=== PATIENT | female | born 1945 | race Caucasian/White ===

== ENCOUNTER → 2017-12-13 12:28 | Outpatient (CLI) | payer MEDICARE, SELFPAY ==
--- NOTE | 2017-12-13 12:36 | DI.RAD.S_ITS ---
PROCEDURE: XR LUMBAR SPINE 2-3V INDICATIONS: low back pain TECHNIQUE: 3 views of the lumbar spine were acquired. COMPARISON: None. FINDINGS: Bones: There are 5 [id number] lumbar vertebral bodies. There is 29? left convex rotational scoliosis centered at L2. No wedge compression deformities. Degenerative change including osteophytosis and facet sclerosis is present throughout the mid and lower lumbar spine. Soft tissues: Overlying bowel gas pattern is normal. No suspicious soft tissue calcifications. IMPRESSION: 1. Left convex scoliosis and degenerative change. Dictated by: Chante Keller M.D. on 12/13/2017 at 14:44 Approved by: Chante Keller M.D. on 12/13/2017 at 14:50
[2017-12-13 13:35] LABS: Add Manual Diff / Slide Review NO; Basophils Percent Auto 0.3 % (0-2); Eosinophils Percent Auto 0.9 % (2-4); Hematocrit 37.6 % (36-46); Hemoglobin 12.8 g/dL (12.0-16.0); Lymphocytes Percent Auto 31.1 % (25-40); Mean Corpuscular Hemoglobin 29.2 PG (26-34); Mean Corpuscular Volume 85.9 fL (80-100); Monocytes Percent Auto 8.4 % (3-14); Neutrophils Absolute Auto 3700 /uL (3000-5900); Neutrophils Percent Auto 59.3 % (50-75); Platelet Count 242 X10^3/uL (150-400); Red Blood Cell Count 4.37 X10^6/uL (4.0-5.2); Red Cell Distribution Width 13.7 % (11.6-14.8); White Blood Cell Count 6.3 X10^3/uL (4.5-11.0)
[2017-12-13 13:46] LABS: Alanine Aminotransferase 22 IU/L (9-52); Albumin 4.4 g/dL (3.5-5.0); Albumin Globulin Ratio 1.4 (1.0-2.8); Alkaline Phosphatase 59 U/L (38-126); Aspartate Aminotransferase 33 IU/L (14-36); Bilirubin Total 0.5 mg/dL (0.2-1.3); Blood Urea Nitrogen 16 mg/dL (7-17); Calcium 9.8 mg/dL (8.4-10.2); Carbon Dioxide 33 mmol/L (22-32); Chloride 102 mmol/L (98-107); Creatine Kinase 58 U/L (30-135); Estimated Glomerular Filt Rate > 60.0 mL/min (>60); Globulin 3.2 g/dL (1.7-4.1); Glucose 85 mg/dL (80-110); HEMOLYSIS < 15 (0-50); Potassium 4.2 mmol/L (3.4-5.1); Sodium 142 mmol/L (137-145); Total Protein 7.6 g/dL (6.3-8.2)
[2017-12-13 13:47] LABS: C-Reactive Protein Quant < 0.5 mg/dL (<1.0); Rheumatoid Factor < 8.6 IU/mL (<12.0)
[2017-12-13 14:06] LABS: Erythrocyte Sedimentation Rate 39 MM/HR (0-20)
[2017-12-13 15:05] LABS: Thyroid Stimulating Hormone 1.85 uIU/mL (0.47-4.68)
[2017-12-13 15:08] LABS: Vitamin D 25 Hydroxy (D3) 47.6 ng/mL (30.0-100.0)
[2017-12-19 14:52] LABS: ANA Screen NEGATIVE; Rheumatoid Factor <14
[2017-12-19 14:53] LABS: DNA Antibody Crithidia IFA NEGATIVE; Sjogren Antiboday SS-A <1.0 NEG; Sm Antibody <1.0 NEG; Sm/RNP Antibody <1.0 NEG
[2017-12-19 14:54] LABS: Sjogren Antiboday SS-B <1.0 NEG
== END ==
PROVIDERS: Family Provider Internal Medicine; PCP Internal Medicine; Visit Provider Internal Medicine
DX: M79.604 Pain in right leg (principal); M79.605 Pain in left leg; R29.898 Other symptoms and signs involving the musculoskeletal system; M54.5 Low back pain
CPT/HCPCS: 36415; 72100; 80053; 82306; 82550; 84443; 85025; 85651; 86038; 86140; 86430

== ENCOUNTER → 2018-02-14 12:52 | Outpatient (CLI) | payer MEDICARE, SELFPAY ==
--- NOTE | 2018-02-14 12:54 | DI.RAD.S_ITS ---
PROCEDURE: XR HIP W PEL IF DONE LT 2V INDICATIONS: left hip/groin pain TECHNIQUE: AP pelvis with lateral view(s) of the left hip(s). COMPARISON: [facility], , HIP 2V RIGHT, 10/18/2008, 10:20. FINDINGS: Bones: No fractures or dislocations. Pelvic ring appears intact. No suspicious bony lesions. There is severe left hip joint degeneration with joint space narrowing, subchondral sclerosis and osteophyte formation. Soft tissues: The visualized bowel gas pattern is normal. No suspicious soft tissue calcifications. IMPRESSION: Severe degenerative joint disease in left hip. Dictated by: Ramsey Salcedo M.D. on 02/14/2018 at 17:03 Approved by: Ramsey Salcedo M.D. on 02/14/2018 at 17:04
== END ==
PROVIDERS: PCP Internal Medicine; Visit Provider Internal Medicine
DX: M16.12 Unilateral primary osteoarthritis, left hip (principal); R10.32 Left lower quadrant pain; M25.552 Pain in left hip
CPT/HCPCS: 73502

== ENCOUNTER → 2018-03-02 10:11 | Outpatient (CLI) | payer MEDICARE, SELFPAY ==
--- NOTE | 2018-03-02 10:13 | DI.MRI.S_ITS ---
PROCEDURE: MR LUMBAR SPINE WO CON INDICATIONS: low back pain with radiculopathy TECHNIQUE: Noncontrast sagittal T1 spin echo and T2 fast echo, sagittal STIR, axial T1 and T2 fast spin echo through the lumbar spine. In cases with scoliosis, additional coronal T2 fast spin echo may be performed. COMPARISON: [facility], CR, XR LUMBAR SPINE 2-3V, 12/13/2017, 12:36. FINDINGS: Image quality: Excellent. Alignment and Curvature: There is convex left scoliosis with Funez angle of 24?. There is trace L3-L4 and L4-L5 degenerative anterolisthesis. There is trace L1-L2 retrolisthesis. Bone Marrow: Mild reactive endplate changes noted adjacent to the L1-L2, L2-L3, L3-L4, L4-L5 and L5-S1 discs. No acute vertebral body compression fractures. Spinal Cord: Conus medullaris terminates at the L1 level. Visualized cord demonstrates normal signal and size. Paraspinous Soft Tissues: No paravertebral masses. Small right renal cyst. L1-L2: Loss of disc signal and mild loss of disc height. Mild, diffuse disc bulge. mild narrowing of the central canal. No neural foraminal narrowing. No neural impingement. L2-L3: Loss of disc signal and slight loss of disc height. Mild, diffuse disc bulge. Mild facet and mild ligamentum flavum hypertrophy. Mild to moderate narrowing of the central canal. No neural foraminal narrowing. No neural impingement. L3-L4: Loss of disc signal. Moderate, diffuse disc bulge. Mild facet and moderate ligamentum flavum hypertrophy. Moderate narrowing of the central canal. Mild bilateral neural foraminal narrowing. No neural impingement. L4-L5: Loss of disc signal and slight loss of disc height. Moderate, diffuse disc bulge and mild facet and moderate ligamentum flavum hypertrophy. Moderate narrowing of the central canal. Mild right and severe left neural foraminal narrowing with flattening deformity exiting left L4 nerve root. L5-S1: Loss of disc signal. Mild diffuse disc bulge and mild bilateral facet hypertrophy. No central stenosis. Mild right neural foraminal narrowing. No neural impingement. Focal high intensity zone within the posterior annulus compatible with a fissure. IMPRESSION: 1. Convex left scoliosis. 2. Multilevel degenerative disc disease. 3. Multilevel facet arthropathy. 4. Moderate L3-L4 and L4-L5 central canal narrowing. Mild to moderate L2-L3 central canal narrowing. Mild L1-L2 the central canal narrowing. 5. Mild right and severe left L4-L5 neural foraminal narrowing. Mild bilateral L3-L4 neural foraminal narrowing. Mild right L5-S1 neural foraminal narrowing. 6. Flattened deformity of the exiting left L4 nerve root secondary to neural foraminal narrowing. Please correlate with clinical data. Dictated by: Gina Denise MD, PhD on 03/02/2018 at 13:08 Approved by: Gina Denise MD, PhD on 03/02/2018 at 13:23
== END ==
PROVIDERS: Family Provider Orthopaedic Surgery; PCP Internal Medicine; Visit Provider Internal Medicine
DX: M54.5 Low back pain (principal); M54.10 Radiculopathy, site unspecified
CPT/HCPCS: 72148

== ENCOUNTER → 2018-03-04 08:56 | Outpatient (CLI) | payer MEDICARE, SELFPAY ==
[2018-03-04 09:35] LABS: Add Manual Diff / Slide Review NO; Basophils Percent Auto 0.2 % (0-2); Eosinophils Percent Auto 2.4 % (2-4); Hematocrit 38.4 % (36-46); Hemoglobin 12.7 g/dL (12.0-16.0); Lymphocytes Percent Auto 21.9 % (25-40); Mean Corpuscular HGB Conc 33.2 % (30-36); Mean Corpuscular Hemoglobin 28.8 PG (26-34); Mean Corpuscular Volume 86.8 fL (80-100); Monocytes Percent Auto 7.3 % (3-14); Neutrophils Absolute Auto 6000 /uL (3000-5900); Neutrophils Percent Auto 68.2 % (50-75); Platelet Count 243 X10^3/uL (150-400); Red Blood Cell Count 4.42 X10^6/uL (4.0-5.2); White Blood Cell Count 8.9 X10^3/uL (4.5-11.0)
[2018-03-04 09:57] LABS: Alanine Aminotransferase 28 IU/L (9-52); Albumin Globulin Ratio 1.3 (1.0-2.8); Alkaline Phosphatase 64 U/L (38-126); Aspartate Aminotransferase 36 IU/L (14-36); Bilirubin Total 0.5 mg/dL (0.2-1.3); Blood Urea Nitrogen 15 mg/dL (7-17); Calcium 9.3 mg/dL (8.4-10.2); Carbon Dioxide 34 mmol/L (22-32); Chloride 104 mmol/L (98-107); Cholesterol 211 mg/dL (140-199); Estimated Glomerular Filt Rate > 60.0 mL/min (>60); Globulin 3.1 g/dL (1.7-4.1); Glucose 87 mg/dL (80-110); HDL Cholesterol 57 mg/dL (40-60); HEMOLYSIS < 15 (0-50); LDL Cholesterol Calculated 126 mg/dL (<100); Potassium 5.3 mmol/L (3.4-5.1); Sodium 147 mmol/L (137-145); Total Protein 7.1 g/dL (6.3-8.2); Triglycerides 138 mg/dL (35-150)
[2018-03-04 10:26] LABS: Thyroid Stimulating Hormone 1.19 uIU/mL (0.47-4.68)
== END ==
PROVIDERS: Family Provider Orthopaedic Surgery; PCP Internal Medicine; Visit Provider Internal Medicine
DX: E78.5 Hyperlipidemia, unspecified (principal)
CPT/HCPCS: 36415; 80053; 80061; 84443; 85025

== ENCOUNTER → 2018-05-13 09:30 | Outpatient (CLI) | payer MEDICARE, SELFPAY ==
[2018-05-13 10:02] LABS: Bacteria Urine None Seen; RBC Urine None Seen (0-5/HPF); WBC Urine None Seen (0-5/HPF)
[2018-05-13 10:50] LABS: Appearance Urine UA CLEAR; Bilirubin Urine UA NEGATIVE (NEGATIVE); Color Urine UA YELLOW; Glucose Urine UA NEGATIVE (Negative); Ketones Urine UA NEGATIVE (NEGATIVE); Leukocyte Esterase Urine UA NEGATIVE (NEGATIVE); Nitrite Urine UA NEGATIVE (Negative); Occult Blood Urine UA NEGATIVE (Negative); Protein Urine UA NEGATIVE (Negative); Specific Gravity Urine UA 1.015 (1.000-1.035); Urobilinogen Urine UA 0.2 E.U./dL (0.2); pH Urine UA 7.5 (4.5-8.0)
[2018-05-13 10:54] LABS: Add Manual Diff / Slide Review NO; Basophils Percent Auto 0.2 % (0-2); Eosinophils Percent Auto 2.1 % (2-4); Hematocrit 36.8 % (36-46); Hemoglobin 12.3 g/dL (12.0-16.0); Lymphocytes Percent Auto 29.4 % (25-40); Mean Corpuscular HGB Conc 33.5 % (30-36); Mean Corpuscular Hemoglobin 28.8 PG (26-34); Monocytes Percent Auto 9.2 % (3-14); Neutrophils Absolute Auto 2900 /uL (1500-7000); Neutrophils Percent Auto 59.1 % (50-75); Platelet Count 259 X10^3/uL (150-400); Red Blood Cell Count 4.28 X10^6/uL (4.0-5.2); Red Cell Distribution Width 13.6 % (11.6-14.8); White Blood Cell Count 4.9 X10^3/uL (4.5-11.0)
[2018-05-13 10:57] LABS: Culture Indicated Urine Cult Not Indicated; Mucus Urine 2+ (Negative)
[2018-05-13 11:24] LABS: Blood Urea Nitrogen 17 mg/dL (7-17); Calcium 9.1 mg/dL (8.4-10.2); Carbon Dioxide 32 mmol/L (22-32); Chloride 103 mmol/L (98-107); Estimated Glomerular Filt Rate > 60.0 mL/min (>60); Glucose 78 mg/dL (80-110); HEMOLYSIS < 15 (0-50); Potassium 4.6 mmol/L (3.4-5.1); Sodium 142 mmol/L (137-145)
[2018-05-13 11:29] LABS: Hemoglobin A1C% w Est Avg Glu 5.5 % (4.0-6.0)
== END ==
PROVIDERS: Family Provider Orthopaedic Surgery; PCP Internal Medicine; Visit Provider Orthopaedic Surgery
DX: N39.9 Disorder of urinary system, unspecified (principal); Z13.1 Encounter for screening for diabetes mellitus; R73.01 Impaired fasting glucose
CPT/HCPCS: 36415; 80048; 81001; 83036; 85025

== ENCOUNTER 2018-06-27 10:04 | Inpatient (IN) | payer MEDICARE, SELFPAY ==
[2018-06-12 09:59] VITALS: BMI 20.5
[2018-06-27] VITALS (13 sets, daily range): BP systolic 90–136; BP diastolic 51–69; PULSE 62–85; RESP 14–18; TEMP 36.1–36.8; O2SAT 95–100; BMI 20.5; BMI 23.0
--- NOTE | 2018-06-27 | DI.RAD.S_ITS ---
PROCEDURE: XR HIP LT 1V INDICATIONS: LEFT HIP REPLACEMENT TECHNIQUE: 11 views of the hip were acquired. COMPARISON: [facility], [place], XR HIP W PEL IF DONE LT 2V, 02/14/2018, 12:35. [facility], [place], HIP 2V RIGHT, 10/18/2008, 10:20. FINDINGS: Bones: No fractures or dislocations. No suspicious bony lesions. The visualized pelvic ring appears intact. Soft tissues: No suspicious soft tissue calcifications or masses. IMPRESSION: A series of images shows the sequence of preparation for placement of final components of left total hip arthroplasty, and the final 2 images show the final arthroplasty components in normal position establishing normal alignment. Dictated by: Pineda Lacey M.D. on 06/27/2018 at 16:10 Approved by: Pineda Lacey M.D. on 06/27/2018 at 16:12
--- NOTE | 2018-06-27 06:00 | DI.RAD.S_ITS ---
PROCEDURE: XR HIP W PEL IF DONE LT 2V INDICATIONS: Postop left total hip TECHNIQUE: 2 views of the hip were acquired. COMPARISON: [facility], CR, XR HIP W PEL IF DONE LT 2V, 02/14/2018, 12:35. FINDINGS: Bones: No fractures or dislocations. No suspicious bony lesions. The visualized pelvic ring appears intact. Soft tissues: No suspicious soft tissue calcifications or masses. No unexpected radiopaque foreign bodies are evident. There is a soft tissue edema and air are seen within the soft tissues overlying the left hip region. IMPRESSION: Expected post surgical changes related to left hip arthroplasty. Dictated by: Dio Ngo M.D. on 06/27/2018 at 15:15 Approved by: Dio Ngo M.D. on 06/27/2018 at 15:16
[2018-06-27] MEDS: LACTATED RINGERS 1,000 ML 42 ML IV (10:45)
[2018-06-27] MEDS: MELOXICAM 7.5 MG TABLET 15 MG PO (11:04)
[2018-06-27] MEDS: PREGABALIN 75 MG CAPSULE PO (11:04)
[2018-06-27] MEDS: ACETAMINOPHEN 325 MG TABLET 975 MG PO ×2 (11:04→20:58)
[2018-06-27] MEDS: VANCOMYCIN 1,000 MG/200 ML FROZ.PIGGY 200 MG IV (11:05)
--- NOTE | 2018-06-27 12:09 | PM.PREOP ---
Pre-operative Note Interval Note History & Physical reviewed/Exam performed by Physician: Yes Changes to H&P: No
--- NOTE | 2018-06-27 12:11 | P.OP_ITS ---
Operative Date/Time/Diagnoses Date of procedure: 06/27/18 Time of procedure: 12:36 Pre-op diagnosis: left hip OA Post-op diagnosis: same Procedure & Clinicians Procedure: Left total hip arthroplasty Same procedure as scheduled: Yes Indications: The patient has had progressively worsening left hip pain with radiographic changes consistent with arthritis. Non-operative management has failed and the patient has requested total hip replacement. The risks, benefits and alternatives to surgery were discussed with the patient prior to proceeding. Risks discussed included, but were not limited to, failure to relieve pain, leg length discrepancy, dislocation, stiffness, infection, nerve damage, deep venous thrombosis, pulmonary embolism, stroke, coma, heart attack, permanent paralysis and , as well as the potential need for eventual revision of the prosthetic. Surgeon: Lorrei Anderson Tobacco Scrap Sifter: Clarence Mills Anesthesia Type: General and Spinal Operative Notes Findings: Severe left hip arthritis, soft bone, good stability Closure Type: primary Specimen(s): none sent Prosthetic devices, grafts, tissues, transplants, or devices: [employer] anthology standard offset size 6, R3 50, 32 x -3 Estimated Blood Loss (mL): 250 Blood products transfused: none Procedure in detail: The patient was brought to the operating room. Patient was carefully positioned in the supine position. Time-out was performed and antibiotics were given. Anesthesia was induced. She was positioned in the on the table in order to allow hyperextension of the hip. Bilateral lower extremities were prepped and draped in a standard sterile fashion. An anterior left hip incision was made 1 fingerbreadth lateral to the anterior superior iliac spine and extended distally towards the greater trochanter. Dissection was carried out through skin and subcutaneous tissues. The skin and subcutaneous tissues were carefully injected with Lidocaine with epi. Superficial hemostasis was achieved. The fascia over the tensor fascia donte was defined and incised with a knife. Two Allis clamps were used to grasp the fascia. Tensor fascia donte was retracted laterally. A gelpi retractor was placed. Dissection was carried out down along the neck. The circumflex vessels were carefully identified and cauterized with the Aqua Mantis. There was good visualization of the femoral neck. A Cobra was placed superior to the neck and the gluteus fibers were carefully stripped from that superior aspect of the capsule. A 2nd retractor was placed along the inferior aspect of the neck. The rectus insertion along the capsule was partially released. A 3rd retractor that was then gently placed over the rim of the acetabulum under the rectus. Capsule was carefully incised and released from the intertrochanteric line circumferentially superior to the mid sagittal line and inferiorly to the mid sagittal line until the lesser trochanter was palpable. A tag stitch was placed both in the superior and inferior limb of the capsular insertion. Along the acetabulum capsule was also released up to the mid sagittal 12:00 position. A portion of the labrum was resected. A saw was used to perform an osteotomy at the level of the intertrochanteric line and the junction of the superior femoral neck leaving approximately 1 finger breath of residual inferior neck above the lesser trochanter. A 2nd cut was made along the femoral neck at the base of the head and a napkin ring of neck was removed. Corkscrew was placed in the femoral head and the head was removed without difficulty. Retractors were then repositioned around the a cetabulum. Residual labrum was resected and additional osteophytes were removed. A reamer that was 4 mm below the templated size was placed by hand in the acetabulum and it was reamed to centralize the acetabulum. It was then reamed up to 2 under the templated size and fluoroscopy was brought in to confirm the position of the reaming and depth of reaming. I reamed 1 under the anticipated size and touched the rim with line to line reaming. A trial cup was placed and noted that it was appropriately sized and fluoroscopy confirmed position and depth. The component was open and inserted without difficulty fluoroscopic imaging was used to confirm that the cup had been adequately seated and was well positioned. Neutral poly trial liner was placed. The cup was tested and noted to be stable. Attention was then directed to the femur. The femur was gently hyperextended additional capsular release was performed as needed in order to allow adequate visualization of the proximal femur with elevation of the femur. Patient was placed in a hyperextended slightly abducted position with maximum external rotation. Box osteotome was used to check for any residual neck as well as sclerotic bone along the trochanter. [place] pepper was placed in the femur. Additional broaching was performed. Canal finder was used to determine the alignment of the canal and position. Size 1 broach was placed. The canal was then appropriately broached up to the templated size as long as there was adequate stability of the broach and serial advancement of the broach without excessive impingement. Specific attention was directed at avoiding varus attempting to direct the distal aspect of the broach more anteriorly and avoiding excessive anteversion. Trial reduction showed acceptable range of motion, good stability, no posterior impingement, restorationist of leg length and appropriate lateral shuck. I also hyperflexed the hip and checked that there was no impingement anteriorly and there was good stability with flexion, abduction and internal rotation. Final neutral poly was placed without difficulty. Marcaine and Exparel were injected.. The stem was placed without difficulty. Repeat trial reduction and x-ray showed acceptable overall position, length, and no evidence of the femoral fracture. Final head was placed. Wound was meticulously irrigated with normal saline. The hip was reduced and additional Exparel and Marcaine were injected. The capsule was closed with interrupted nonabsorbable sutures. The fascia of the tensor was closed with interrupted and running Vicryl. No drain was placed. Any tensor fascia donte muscle that appeared to be contused or injured which was a minimal amount was carefully resected. Capsule around the tensor was injected with Exparel and Marcaine. The skin was closed with barbed stitches for the subcutaneous tissue and skin. We also used surgical glue. The wound was dressed sterilely. Brief Betadine soak was also used and was meticulously irrigated wit h normal saline. Patient was transferred to recovery room in satisfactory condition. Complications: none Condition: stable Disposition: Acute Care Plan for aftercare: The patient will be maintained on a standard total hip replacement protocol with weight bearing as tolerated and anterior hip precautions. The patient will receive Aspirin and sequential compression devices for DVT prophylaxis. The patient will be discharged home when safe for the home environment.
[2018-06-27] MEDS: CEFAZOLIN 2 GM/100 ML FROZ.PIGGY IV ×2 (12:38→21:05)
--- NOTE | 2018-06-27 13:18 | SUR.OPER ---
Supine, head on pillow, torso on pink pad positioner. Iliac crest at flex of foot end of table. Gel roll under operative hip. Both arms secured on arm boards <90 degrees abduction.
[2018-06-27] MEDS: LIDOCAINE 1% W/EPI INJ 20 ML INJ (13:24)
[2018-06-27] MEDS: BUPIVACAINE 0.25% W/ EPI VIAL 50 ML INJ (14:07)
[2018-06-27] MEDS: BUPIVACAINE LIPOSOME 266 MG/20 ML VIAL INJ (14:07)
[2018-06-27] MEDS: POVIDONE-IODINE 15 ML, SODIUM CHLORIDE 0.9% 250 ML TOP (14:07)
[2018-06-27] MEDS: LACTATED RINGERS 1,000 ML 125 ML IV (16:40)
--- NOTE | 2018-06-27 19:22 | PC.NURSE ---
Addendum entered by Yudith Orellana R.N. 06/27/18 21:17: Pt had had relatively uneventful evening. Denies any discomfort, CMS ++ Dsg to left anterior hip CDI. IVF continue as per orders. Stable post op course. Call light w/in reach, bed alarm on for pt safety. Continue w/plan of care. Original Note: Pt arrived to floor at 1605. Alert/oriented. denies discomfort. Pt and family oriented to room and call system. Dsg to anterior left leg CDI.. IV of LR infusing into the RFA @ 125cc/hr via pump w/o incidence. Stable post op course. Call light w/in reach, family in room.
[2018-06-27] MEDS: DOCUSATE 100 MG CAPSULE PO (20:57)
[2018-06-27] MEDS: ASPIRIN EC 81 MG TABLET PO (20:58)
[2018-06-27] MEDS: AMITRIPTYLINE 25 MG TABLET PO (20:59)
[2018-06-28] MEDS: LACTATED RINGERS 1,000 ML 125 ML IV (00:04)
[2018-06-28 04:45] VITALS: BP 96/68; PULSE 70; RESP 18; TEMP 36.4; O2SAT 96
[2018-06-28] MEDS: CEFAZOLIN 2 GM/100 ML FROZ.PIGGY IV (05:31)
[2018-06-28 07:16] LABS: Hematocrit 30.7 % (36-46)
[2018-06-28 08:00] VITALS: BP 95/54; PULSE 66; RESP 16; TEMP 35.6
--- NOTE | 2018-06-28 08:18 | PM.DS.1 ---
History of Present Illness Date Patient Seen: 06/28/18 Time Patient Seen: 08:19 Chief complaint: left hip [id number] Narrative: Hospital day 2, postop day 1 following left anterior total hip arthroplasty by Dr. Anderson. Patient has been stable since postoperatively. She has not worked with physical therapy yet. Pain is been well controlled with ibuprofen and aspirin. She is scheduled to go to [id number]. Patient desiring to go home today. Discharge Providers Date of admission: 06/27/18 10:04 Primary care physician: VONNIE Florian Consults: 06/27/18 06:00 Consult to Anesthesiology Routine Comment: Consulting Provider: Anesthesiologist Reason for consultation: Regional block for post operative pain control 06/27/18 16:26 Consult to Discharge Planning Routine Comment: Consult to Physical Therapy Evaluate & Treat Comment: Physician Instructions: post op MARIYA protocol Consult to Respiratory Therapy Evaluate & Treat Comment: Physician Instructions: Evaluate and treat Discharge provider: Andrew aLke PA-C Discharge Date: 06/28/18 Summary Discharge Diagnosis: Status post left anterior total hip arthroplasty. Hospital Course: Patient brought to hospital on 06/27/2018 for above noted surgery. She remained stable postoperatively. She advanced well with physical therapy. Ready for discharge home on postop day 1. Status at Discharge Cognitive/behavioral status at discharge: Alert, oriented no acute distress. Functional status at discharge: uses cane/walker Overall status at discharge: patient is progressing back to baseline Time Spent with Patient Less than 30 minutes Exam Vital Signs (past 8 hours): - 06/28/18 04:45 Temperature 97.6 F Pulse Rate 70 Respiratory Rate 18 Blood Pressure 96/68 Pulse Oximetry 96 Oxygen Delivery Method Room Air Oxygen Flow Rate 0 Narrative Exam Narrative: Legs. Aquacel dressing to left hip area is dry without drainage or inflammation. No calf pain or swelling. Pulses symmetrical. Objective Labs Result Diagrams: 06/28/18 06:37 Labs: Laboratory Results - last 24 hr 06/28/18 06:37 Hgb 10.0 L Hct 30.7 L Discharge Plan Discharge Plan Patient Disposition: Home Discharge Med Rec/Prescriptions Prescriptions: New acetaminophen 325 mg Tablet 975 mg PO TID Qty: 60 RF: 0 aspirin 81 mg Tablet,Delayed Release (Dr/Ec) 81 mg PO BID Qty: 60 RF: 0 hydrocodone-acetaminophen [[place]] 5-325 mg tablet 1 tab PO Q6H Qty: 20 RF: 0 Continued calcitonin (salmon) 200 IU/PUFF spray,non-aerosol 1 puff NS QDAY Qty: 3.7 RF: 5 amitriptyline 25 mg tablet 25 mg PO BEDTIME Qty: 30 RF: 2 meloxicam 15 mg tablet 15 mg PO DAILY Qty: 30 RF: 1 ibandronate [[place]] 150 mg tablet 150 mg PO QMONTH Qty: 3 RF: 3 atorvastatin 10 mg tablet 10 mg PO QPM RF: 0 tramadol 50 mg tablet 50 mg PO BEDTIME RF: 0 Follow up/Referrals: Lorrie Anderson MD [Family Provider] - (follow up in 5-7 days) Provider Discharge Instructions Diet: Diet as Tolerated Activity: Anterior hip precautions Cold/Heat Therapy: as needed Other treatments: Patient has tramadol at home and will try using that for pain before filling the prescription for hydrocodone. Skin/Wound/Dressing Care Report to your healthcare provider any signs of infection, such as:: chills, fever, night sweats, increased pain, unusual drainage and unusual redness Dressing: leave in place until second post op appointment Visit Report/Discharge Packet Instructions: DI for Hip Replacement Discharge Data Primary Care Provider: Kristen Porter Attending Provider: Lorrie Anderson Admit Date/Time: 06/27/18 10:04 Quality VTE Deep Vein Thrombosis/Pulmonary Embolism Present on Admission: No
--- NOTE | 2018-06-28 08:22 | P.DS_ITS ---
History of Present Illness Date Patient Seen: 06/28/18 Time Patient Seen: 08:19 Chief complaint: left hip [id number] Narrative: Hospital day 2, postop day 1 following left anterior total hip arthr oplasty by Dr. Anderson. Patient has been stable since postoperatively. She has not worked with physical therapy yet. Pain is been well controlled with ibuprofen and aspirin. She is scheduled to go to [facility]. Patient desiring to go home today. Discharge Providers Date of admission: 06/27/18 10:04 Primary care physician: VONNIE Florian Consults: 06/27/18 06:00 Consult to Anesthesiology Routine Comment: Consulting Provider: Anesthesiologist Reason for consultation: Regional block for post operative pain control 06/27/18 16:26 Consult to Discharge Planning Routine Comment: Consult to Physical Therapy Evaluate & Treat Comment: Physician Instructions: post op MARIYA protocol Consult to Respiratory Therapy Evaluate & Treat Comment: Physician Instructions: Evaluate and treat Discharge provider: Andrew Lake PA-C Discharge Date: 06/28/18 Summary Discharge Diagnosis: Status post left anterior total hip arthroplasty. Hospital Course: Patient brought to hospital on 06/27/2018 for above noted surgery. She remained stable postoperatively. She advanced well with physical therapy. Ready for discharge home on postop day 1. Status at Discharge Cognitive/behavioral status at discharge: Alert, oriented no acute distress. Functional status at discharge: uses cane/walker Overall status at discharge: patient is progressing back to baseline Time Spent with Patient Less than 30 minutes Exam Vital Signs (past 8 hours): - 06/28/18 04:45 Temperature 97.6 F Pulse Rate 70 Respiratory Rate 18 Blood Pressure 96/68 Pulse Oximetry 96 Oxygen Delivery Method Room Air Oxygen Flow Rate 0 Narrative Exam Narrative: Legs. Aquacel dressing to left hip area is dry without drainage or inflammation. No calf pain or swelling. Pulses symmetrical. Objective Labs Result Diagrams: 06/28/18 06:37 Labs: Laboratory Results - last 24 hr 06/28/18 06:37 Hgb 10.0 L Hct 30.7 L Discharge Plan Discharge Plan Patient Disposition: Home Discharge Med Rec/Prescriptions Prescriptions: New acetaminophen 325 mg Tablet 975 mg PO TID Qty: 60 RF: 0 aspirin 81 mg Tablet,Delayed Release (Dr/Ec) 81 mg PO BID Qty: 60 RF: 0 hydrocodone-acetaminophen [[place]] 5-325 mg tablet 1 tab PO Q6H Qty: 20 RF: 0 Continued calcitonin (salmon) 200 IU/PUFF spray,non-aerosol 1 puff NS QDAY Qty: 3.7 RF: 5 amitriptyline 25 mg tablet 25 mg PO BEDTIME Qty: 30 RF: 2 meloxicam 15 mg tablet 15 mg PO DAILY Qty: 30 RF: 1 ibandronate [Boniva] 150 mg tablet 150 mg PO QMONTH Qty: 3 RF: 3 atorvastatin 10 mg tablet 10 mg PO QPM RF: 0 tramadol 50 mg tablet 50 mg PO BEDTIME RF: 0 Follow up/Referrals: Lorrie Anderson MD [Family Provider] - (follow up in 5-7 days) Provider Discharge Instructions Diet: Diet as Tolerated Activity: Anterior hip precautions Cold/Heat Therapy: as needed Other treatments: Patient has tramadol at home and will try using that for pain before filling the prescription for hydrocodone. Skin/Wound/Dressing Care Report to your healthcare provider any signs of infection, such as:: chills, fever, night sweats, increased pain, unusual drainage and unusual redness Dressing: leave in place until second post op appointment Visit Report/Discharge Packet Instructions: DI for Hip Replacement Discharge Data Primary Care Provider: Kristen Porter Attending Provider: Lorrie Anderson Admit Date/Time: 06/27/18 10:04 Quality VTE Deep Vein Thrombosis/Pulmonary Embolism Present on Admission: No
[2018-06-28] MEDS: ASPIRIN EC 81 MG TABLET PO (08:25)
[2018-06-28] MEDS: ACETAMINOPHEN 325 MG TABLET 975 MG PO (08:26)
[2018-06-28] MEDS: MELOXICAM 7.5 MG TABLET 15 MG PO (08:26)
[2018-06-28 08:38] VITALS: O2SAT 96
--- NOTE | 2018-06-28 12:00 | PT.IIE ---
Current Diagnoses Unilateral primary osteoarthritis, left hip (06/27/18) Surgery Performed Operation Date: 06/27/18 12:00 Actual Procedures p Total Hip Arthroplasty/Anterior Approach(Left) - Lorrie Anderson MD Surgical History (Last Updated 06/12/18 @ 10:14 by Antoinette Boyd RN) Hx of oral surgery (Acute) Anesthesia (Resolved) Chalazion of left eye (Resolved ~2015) Status post right foot surgery (Resolved ~2005) Medical History (Last Updated 06/12/18 @ 10:13 by Antoinette Boyd RN) Aortic valve regurgitation (Acute) Back pain (Acute) Easy bruisability (Acute) Heart murmur (Acute) Mononucleosis (Acute) Scoliosis (Acute) Osteopenia (Chronic) Osteoporosis (Chronic) Chicken pox (Resolved) Hepatitis A (Resolved ~1957) Measles (Resolved) Mumps (Resolved) Physical Therapy Inpatient Evaluation/Re-Eval M1 PT/OT-IP Prior Functional Status Start: 06/28/18 11:43 Freq: NEEDED Status: Active Protocol: Document 06/28/18 10:30 (Rec: 06/28/18 12:00 [email or web address]) Medical Review Prior Functional Status Medical History Reviewed Yes Diet/Fluid Consistency Regular Communication No communication deficits noted Mobility and Gait Pt was an independent ambulator at home and community without using AD. Pt states she is slow in walking and used step to pattern for stair climbing. Activities of Daily Living and IADL's Independent for all ADLs and IADLs Social History Household Members spouse family Living Arrangements House Number of Floors (Floors) Two Floors Number of Stairs To Enter/Railing? 2 DAMIAN, 18 steps inside to 2nd floor Home Environment Tub/Shower Home Equipment Front Wheel Walker Straight Cane Raised Toilet Seat Without Armrests Employment Status Retired Additional Social History Comment Pt lives with his and a family member in a 2 story home in [place]. Pt's son John lives in . All 3 of them are very active and independent , and will be able to be pt's CG if needed. Pt lives on 2nd floor but her son states they could move her bed to mainfloor if needed. He is going to get a raised toilet seat with armrest soon. Pt has a tripod cane and FWW and she previously participated pre op PT at [facility]. M2 PT-IP Current Condition Start: 06/28/18 11:43 Freq: NEEDED Status: Active Protocol: Document 06/28/18 10:30 HH (Rec: 06/28/18 12:00 HH [email or web address]) Physical Therapy Current Condition Current Condition Evaluation Date 06/28/18 Treatment Diagnosis L MARIYA (anterior), difficulty in walking Onset Date 06/27/18 Precautions Anterior Hip Precautions No Hip Extension No Hip External Rotation Weight Bearing Status Weight Bearing Status Weight Bear as Tolerated M3 PT-IP Subjective Start: 06/28/18 11:43 Freq: NEEDED Status: Active Protocol: Document 06/28/18 10:30 HH (Rec: 06/28/18 12:00 HH [email or web address]) Subjective Physical Therapy Visit Type Type Initial Evaluation Visit Start Time 10:30 Visit Stop Time 11:10 Total Visit Minutes 40 Notes Pt agreeable to mobilize with PT, along with son and at bedside. Number of WHIPPED TOPPING MIXER Visits 0 Physical Therapy Visit Comments Patient Comments I dont have pain at all and i have been using BSC for toileting with nursing staff. Patient Goals To return home with her and participate PT for cont rehab Therapy Pain Assessment Pain Present Pain Present Denied Pain M4 PT-IP Mobility and Gait Start: 06/28/18 11:43 Freq: NEEDED Status: Active Protocol: Document 06/28/18 10:30 HH (Rec: 06/28/18 12:00 HH [email or web address]) PT-Bed Mobility Assessment Supine to Sit Supine to Sit Independent Head of Bed Elevated Bedrails Scooting Scooting to Edge of Bed Independent Scooting Up and Down in Bed Independent PT-Transfer Assessment Sit to and From Stand Sit to and from Stand Standby Assistance Use of Upper Extremities Equipment Transfer Assistive Device Gait Belt Front Wheeled Walker Transfers Transfer Destination Bed Chair Toilet Transfer Technique Stand Step Pivot Transfer Ability Level of Assist Standby Assistance 1 Person Assistance Use of Upper Extremities Comments Mobility Comments Pt performed supine to long sit independently from elevated HOB 30 degrees. She then pivoted herself to L EOB and scooted forward independently. Pt stood up with FWW SBA and amb to bathroom for toileting. Pt was able to doff her brief with 1 UE support SBA and safely transferred herself to regular toilet. Educated pt and family of car transfer to use R back door to enter since better stability with her R LE . Gait Assessment Gait Gait Assistance Required: Standby Assistance Distance (Feet) 200 Able to Maintain Weight Bearing Status Yes During Gait Assistive Devices Assistive Device Gait Belt Front Wheeled Walker Gait Deviations General Gait Pattern Antalgic Decreased Stride Length Decreased Feet Clearance Factors Limiting Gait Function Factors Limiting Gait Function Decreased Activity Tolerance Decreased Strength Comments Gait Comments Pt amb from EOB to toilet and to hallway for 2 loops with SBA FWW. Pt presented slight antalgic gait on L side with decreased stride length and foot clearance. However, she was very steady without signs of LOB and acute distress. Stair Climbing Assessment Evaluation Level of Assist On Stairs Standby Assistance Devices Stair Climbing Assistive Devices Right Railing Technique/Endurance Stair Climbing Direction Ascend and Descend Stair Climbing Technique Step to Step Number of Steps Climbed 3 Query Text: Stair Climbing Set # Repetitions (reps) 5 Comments Stair Climbing Comments climbed 3 steps x 5 sets with R rail step to pattern. Pt was able to recall up with the good and down with the bad. She presented steady pattern the whole time. PT-Balance Assessment Sitting Balance and Reactions Static Sitting Balance Ability Normal Dynamic Sitting Balance Ability Normal Standing Balance and Reactions Static Standing Balance Ability Good Dynamic Standing Balance Ability Good M5 PT-IP Objective Assessments Start: 06/28/18 11:43 Freq: NEEDED Status: Active Protocol: Document 06/28/18 10:30 HH (Rec: 06/28/18 12:00 [email or web address]) Orientation Orientation/Cognition Level of Alertness Alert Orientation Name Age Birthday Month Date Year Day of Week Place Situation Language Function Ability No Deficits Noted Safety Awareness Understands Safety Issues Memory Description No Deficits Noted Gross Range of Motion Upper Extremity ROM Assessment Within Functional Limits Lower Extremity ROM Assessment Left Impaired Strength Upper Extremity Strength Assessment Within Functional Limits Lower Extremity Strength Assessment Left Impaired Comments Strength Comments 3+/5 for L hip grossly Coordination Assessment Gross Coordination Gross Coordination WNL Sensation Assessment Sensation Gross Sensation WNL Muscle Tone Muscle Tone WNL Yes M6 PT-IP Treatment Start: 06/28/18 11:43 Freq: NEEDED Status: Active Protocol: Document 06/28/18 10:30 HH (Rec: 06/28/18 12:00 [email or web address]) Physical Therapy Treatment Exercises Exercises Ankle Pumps Gluteal Sets Quad Sets Heel Slides Education Education Provided Precautions Weight Bearing Status Post-Op Packet Safety M7 PT-IP Assessment and Plan Start: 06/28/18 11:43 Freq: NEEDED Status: Active Protocol: Document 06/28/18 10:30 HH (Rec: 06/28/18 12:00 [email or web address]) PT Summary Assessment and Plan Potential Rehabilitation Potential Excellent Status of Condition at Evaluation Stable Summary Impairments Pain Strength Bed Mobility Transfers Gait Activity Tolerance Assessment Summary Pt is a very pleasant and motivated 73 yo s/p post L MARIYA (anterior approach) day 1. Pt 's supportive and son are at bedside. Pt demonstrated very high functional mobility today who was able to perform bed mobility, amb and stair climbing with overall SBA/I with FWW. Pt was very steady, safe and cautious the whole time and able to recall precautions. Pt also has her appointments settled with [facility] starting on 07/06. Pt is safe to d/c home with family assistance at this point and will benefit from participating outpatient PT to cont rehab. Frequency of Treatment Frequency Of Treatment Discharge Recommendations To Nursing Amount of Assist Needed Standby Assistance 1 Person Assist Discharge Recommendations PT Discharge Recommendations Home with Assistance Outpatient PT
== END 2018-06-28 13:13 | disposition home or self-care (01) | DRG 470 ==
PROVIDERS: Admitting Provider Orthopaedic Surgery; Family Provider Orthopaedic Surgery; PCP Internal Medicine; Visit Provider Orthopaedic Surgery
PROC: 0SRB02Z Replacement of Left Hip Joint with Metal on Polyethylene Synthetic Substitute, Open Approach (ICD-10-PCS; CPT 27130; principal; 2018-06-27 12:00)
DX: M16.12 Unilateral primary osteoarthritis, left hip (principal); I35.1 Nonrheumatic aortic (valve) insufficiency; E78.5 Hyperlipidemia, unspecified; I34.0 Nonrheumatic mitral (valve) insufficiency
CPT/HCPCS: 36415; 73501; 73502; 76000; 85014; 85018; 94760; 94762; 97116; 97161; 97530; C1776; C9290; J0690; J1100; J2250; J2405; J2704; J3010; J3370

== ENCOUNTER → 2018-07-19 08:07 | Outpatient (CLI) | payer MEDICARE, SELFPAY ==
[2018-06-27 18:50] VITALS: BMI 23.0
--- NOTE | 2018-07-19 | DI.RAD.S_ITS ---
PROCEDURE: XR ABDOMEN 1V INDICATIONS: abdominal pain, r/o constipation TECHNIQUE: One view of the abdomen acquired. COMPARISON: [facility], CR, XR LUMBAR SPINE 2-3V, 12/13/2017, 12:36. [facility], CR, XR PELVIS WITH LATERAL HIP LEFT, 04/21/2018, 13:17. FINDINGS: Surgical changes and devices: Prior left total hip arthroplasty. Bowel: Bowel gas pattern is normal. Soft tissues: No suspicious abdominal calcifications. Visualized solid organ contours appear normal in size. Bones: No suspicious bony lesions. 22? levoscoliosis centered at L2. IMPRESSION: Nonspecific bowel gas pattern, definite colonic obstipation is not seen. Convex leftward scoliosis measures 22.0?, centered at L2. This appears chronic. Dictated by: Pineda Lacey M.D. on 07/19/2018 at 8:51 Approved by: Pineda Lacey M.D. on 07/19/2018 at 8:53
== END ==
PROVIDERS: PCP Internal Medicine; Visit Provider Internal Medicine
DX: R10.9 Unspecified abdominal pain (principal); M41.86 Other forms of scoliosis, lumbar region; Z96.642 Presence of left artificial hip joint
CPT/HCPCS: 74018

== ENCOUNTER → 2018-08-01 08:09 | Outpatient (CLI) | payer MEDICARE, SELFPAY ==
[2018-06-27 18:50] VITALS: BMI 23.0
--- NOTE | 2018-08-01 | DI.CT.S_ITS ---
PROCEDURE: CT ABDOMEN PELVIS W CON INDICATIONS: ABDOMINAL PAIN TECHNIQUE: After the administration of oral and intravenous contrast, 5 mm thick sections acquired from the diaphragms to the symphysis. 5 mm thick coronal and sagittal reformats were performed. For radiation dose reduction, the following was used: automated exposure control, adjustment of mA and/or kV according to patient size. COMPARISON: None. FINDINGS: Image quality: Excellent. ABDOMEN: Lung bases: Lung bases are clear. Heart size is normal. Fat containing left posterior diaphragmatic hernia. Solid organs: Hepatic steatosis. Gallbladder unremarkable. Biliary system is non-dilated. Pancreas enhances normally. Spleen is normal in size and enhancement. No adrenal nodules. Kidneys are normal in size and enhancement, without hydronephrosis. Peritoneum and bowel: Stomach, small bowel, and colon loops are normal in caliber and wall thickness. No free fluid or air. Colonic diverticulosis is seen without evidence of acute complication. There is questionable long segment sigmoid colonic wall thickening raising possibility of low grade acute on chronic diverticulitis. However, no specific focal inflamed diverticulum is seen recommend clinical correlation. The appendix is within normal limits Nodes and vessels: No retroperitoneal or mesenteric adenopathy. Aorta and inferior vena cava are normal in caliber. Miscellaneous: No ventral hernias. PELVIS: Genitourinary: Bladder wall thickness is normal. Miscellaneous: No inguinal hernias or adenopathy. Bones: No suspicious bony lesions. Scoliosis is present. Diffuse spondylitic changes. No vertebral body compression fractures. IMPRESSION: No acute process identified. Normal appendix. Hepatic steatosis. Fat containing left posterior diaphragmatic hernia. Colonic diverticulosis. Possible long segment mild sigmoid colonic wall thickening raising the possibility of low grade acute inflammation such as acute on chronic diverticulitis, however no specific focal inflamed diverticulum is seen. Dictated by: Asher Lee M.D. on 08/01/2018 at 10:38 Approved by: Asher Lee M.D. on 08/01/2018 at 10:46
== END ==
PROVIDERS: PCP Internal Medicine; Visit Provider Internal Medicine
DX: R10.9 Unspecified abdominal pain (principal); K76.0 Fatty (change of) liver, not elsewhere classified; K44.9 Diaphragmatic hernia without obstruction or gangrene; K57.90 Diverticulosis of intestine, part unspecified, without perforation or abscess without bleeding
CPT/HCPCS: 74177; Q9967

== ENCOUNTER → 2018-09-05 12:58 | Outpatient (CLI) | payer MEDICARE, SELFPAY ==
[2018-06-27 18:50] VITALS: BMI 23.0
== END ==
PROVIDERS: PCP Internal Medicine; Visit Provider Internal Medicine
DX: Z13.820 Encounter for screening for osteoporosis (principal); M81.0 Age-related osteoporosis without current pathological fracture; Z78.0 Asymptomatic menopausal state
CPT/HCPCS: 77080; 77081

== ENCOUNTER → 2019-03-17 09:21 | Outpatient (CLI) | payer MEDICARE, SELFPAY ==
[2018-06-27 18:50] VITALS: BMI 23.0
--- NOTE | 2019-03-17 | DI.MG.S_ITS ---
BILATERAL DIGITAL SCREENING MAMMOGRAM 3D/2D WITH CAD: 03/17/2019 CLINICAL: Routine screening. Family history of breast cancer. Comparison is made to exams dated: 03/04/2017 mammogram, 11/04/2015 mammogram, and 10/18/2014 mammogram - [facility]. There are scattered fibroglandular elements in both breasts. Current study was also evaluated with a Computer Aided Detection (CAD) system. No significant masses, calcifications, or other findings are seen in either breast. There has been no significant interval change. IMPRESSION: NEGATIVE There is no mammographic evidence of malignancy. A 1 year screening mammogram is recommended. This exam was interpreted at Station ID: [id number]. NOTE: For mammograms, a report in lay terms will be sent to the patient. Approximately 15% of breast malignancies will not be visualized mammographically. In the management of a palpable breast mass, a negative mammogram must not discourage biopsy of a clinically suspicious lesion. Electronically Signed By: Brant chavez/althea:03/19/2019 07:57:22 letter sent: Normal Exam ACR BI-RADS Category 1: Negative 3341F
== END ==
PROVIDERS: PCP Internal Medicine; Visit Provider Internal Medicine
DX: Z12.31 Encounter for screening mammogram for malignant neoplasm of breast (principal); Z80.3 Family history of malignant neoplasm of breast
CPT/HCPCS: 77063; 77067

== ENCOUNTER → 2019-07-03 15:54 | Outpatient (CLI) | payer MEDICARE, SELFPAY ==
[2018-06-27 18:50] VITALS: BMI 23.0
--- NOTE | 2019-07-03 | DI.ECHO.S_ITS ---
[facility]---------+ [facility] +---------+ : : [address] : : : : [id number] : : : : Phone: [phone]---------+ Echocardiogram Report + + :Name: GURWINDER OCAMPO Study Date: 07/03/2019 Height: 60 in : :[facility] Weight: 100 lb : : Gender: Female BSA: 1.4 m2 : :: 1945 Age: 74 yrs BP: 132/80 mmHg: :Reason For Study: AORTIC INSUFFICIENCY : :Ordering Physician: Suha : :Dante Performed By: Chelsey Copeland : :Referring: SUHA CLIFTON : + + Interpretation Summary The left ventricle is normal in size and wall thickness. Left ventricular systolic function is normal without focal wall motion abnormalities. The ejection fraction is estimated to be 60-65%. LVEF has not changed since prior study. Diastolic parameters suggest probable normal left ventricular diastolic function and normal filling pressures. The right ventricle is normal in size and function. The right ventricular systolic pressure is estimated to be at least 27 mmHg based on an estimated right atrial pressure of 3 mm Hg. Both atria are normal in size. There is borderline mitral valve prolapse. There is mild mitral regurgitation. MR has not changed since prior study. This is unchanged compared to the previous study. There is mild aortic valve sclerosis. There is mild to moderate aortic regurgitation. This is slightly decreased compared to the previous study. There is no other significant valvular heart disease. The aortic root is normal size. Procedure: A two-dimensional transthoracic echocardiogram with color flow and Doppler was performed. The study quality was technically adequate. Comparison is made with the echocardiogram of 03/17/2017. The patient was in normal sinus rhythm during the exam. Left Ventricle: The left ventricle is normal in size and wall thickness. Left ventricular systolic function is normal without focal wall motion abnormalities. The ejection fraction is estimated to be 60-65%. Diastolic parameters suggest probable normal left ventricular diastolic function and normal filling pressures. Right Ventricle: The right ventricle is normal in size and function. Atria: Both atria are normal in size. There is no Doppler evidence for an interatrial shunt. Mitral Valve: The mitral valve leaflets appear mildly thickened, but open well. There is borderline mitral valve prolapse. There is mild mitral regurgitation. This is unchanged compared to the previous study. Aortic Valve: The aortic valve is trileaflet. The aortic valve opens well. There is mild aortic valve sclerosis. There is mild to moderate aortic regurgitation. There is an eccentric jet of aortic insufficiency directed against the anterior mitral leaflet. There is no holodiastolic flow reversal in the proximal abdominal aorta. This is slightly decreased compared to the previous study. Tricuspid Valve: The tricuspid valve is normal in structure and function. There is mild tricuspid regurgitation. The right ventricular systolic pressure is estimated to be at least 27 mmHg based on an estimated right atrial pressure of 3 mm Hg. Pulmonic Valve: The pulmonic valve is normal in structure and function. There is mild pulmonic regurgitation. There is no other significant valvular heart disease. Great Vessels: The aortic root is normal size. The ascending aorta is normal in size. The IVC is of normal diameter and collapses greater than 50% with a sniff. This suggests a low right atrial pressure of 3 mm Hg. Pericardium/ Pleura There is no pericardial effusion. MMode/2D Measurements & Calculations LVIDd: 4.4 cm LVOT diam: 2.0 cm LVIDs: 3.1 cm Ao root diam: 2.4 cm FS: 29.6 % asc Aorta Diam: 2.8 cm EPSS: 0.53 cm Ao Arch Diam (Prox Trans): 2.2 cm IVSd: 0.65 cm LVPWd: 0.75 cm LV damon. diameter/BSA (cm/m^2): 3.2 LV sys. diameter/BSA (cm/m^2): 2.2 LA A2 area: 15.0 cm2 RA long axis: 4.3 cm LA A4 area: 9.4 cm2 RA area: 13.7 cm2 LA length (vol): 3.7 cm RA vol: 37.2 ml LA vol: 32.2 ml RA : 26.8 ml/m2 LA vol index: 23.2 ml/m2 IVC diam: 1.1 cm RVD1 (basal): 3.3 cm TAPSE: 2.4 cm Doppler Measurements & Calculations Ao V2 max: 148.6 cm/sec LVOT Max Alfonso: 97.0 cm/sec Ao V2 mean: 95.2 cm/sec LV V1 max P.8 mmHg Ao max P.8 mmHg LV V1 VTI: 21.4 cm Ao mean P.1 mmHg HECTOR(I,D): 2.3 cm2 Ao V2 VTI: 29.7 cm HECTOR(V,D): 2.1 cm2 sev ratio: 0.72 HECTOR indexed to BSA (cm^2/m^2): 1.7 AI P1/2t: 593.4 msec AI dec slope: 198.0 cm/sec2 MV E max alfonso: 81.8 cm/sec TR max alfonso: 245.4 cm/sec MV A max alfonso: 68.0 cm/sec TR max P.1 mmHg MV E/A: 1.2 Med Peak E' Alfonso: 5.6 cm/sec E/E' med: 14.7 Lat Peak E' Alfonso: 7.8 cm/sec E/E' lat: 10.5 E/e' average: 12.6 MV dec time: 0.14 sec MV P1/2t: 42.7 msec MV P1/2t max alfonso: 82.3 cm/sec SV(LVOT): 68.1 ml MVA(P1/2t): 5.2 cm2 Reading Physician:04:50 PM
== END ==
PROVIDERS: PCP Internal Medicine; Referring Provider Specialist; Visit Provider Specialist
DX: I08.3 Combined rheumatic disorders of mitral, aortic and tricuspid valves (principal)
CPT/HCPCS: 93306

== ENCOUNTER → 2020-11-24 11:33 | Outpatient (CLI) | payer MEDICARE, SELFPAY ==
[2018-06-27 18:50] VITALS: BMI 23.0
--- NOTE | 2020-11-24 11:34 | DI.RAD.S_ITS ---
PROCEDURE: XR DEXA AXIAL SKELETON INDICATIONS: Age-related osteoporosis COMPARISON: [facility], CR, XR DEXA AXIAL SKELETON, 09/05/2018, 13:16. FINDINGS: This blank DEXA report has been sent in error by the PACS system. The correct and complete report will be forthcoming in 1-2 days. Thank you for your patience and understanding. Dictated by: Gina Denise MD, PhD on 11/24/2020 at 14:02 Approved by: Gina Denise MD, PhD on 11/24/2020 at 14:02
--- NOTE | 2020-11-24 11:35 | DI.US.S_ITS ---
PROCEDURE: US ABDOMEN COMPLETE INDICATIONS: LEFT LOWER QUADRANT PAIN TECHNIQUE: Real-time scanning was performed of the abdominal and retroperitoneal organs, with image documentation. COMPARISON: None. FINDINGS: Liver: Liver is normal in size and homogeneous in echotexture. Gallbladder: Normally distended gallbladder without wall thickening, pericholecystic fluid, sludge, or gallstone. Biliary ducts: Normal caliber Pancreas: Visualized portions of the pancreas are sonographically normal. Spleen: Spleen is normal in size and homogeneous in echotexture. 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 There is a simple cyst in the right interpolar kidney measuring approximately 1.7 centimeters. No hydronephrosis or shadowing calculus. Aorta: Visualized aorta is normal in caliber at less than 3 cm. Iliacs: Proximal common iliac arteries are normal in caliber at less than 2.5 cm. IVC: Intrahepatic inferior vena cava is patent. Miscellaneous: No free abdominal fluid. IMPRESSION: No acute finding or findings to explain pain. Dictated by: Fernando Bhandari M.D. on 11/24/2020 at 14:46 Approved by: Fernando Bhandari M.D. on 11/24/2020 at 14:47
--- NOTE | 2020-11-24 11:35 | DI.US.S_ITS ---
PROCEDURE: US PELVIC COMPLETE INDICATIONS: LEFT LOWER QUADRANT PAIN TECHNIQUE: Real-time scanning was performed of the pelvic organs, with image documentation. Additional endovaginal scanning was necessary due to incomplete visualization of the adnexal and endometrial structures by transabdominal scanning. COMPARISON: [facility], , PELVIC COMPLETE, 04/26/2016, 7:50. FINDINGS: Uterus: Uterus is normal in size at 5.4 x 2.0 x 3.3 cm. The endometrium measures 1.8 mm in combined thickness. Small amount of nonspecific fluid noted in the endometrial canal Ovaries: Right ovary appropriate in size, echotexture and vascularity. Left ovary not visualized. Other: No pathologic free abdominal or pelvic fluid. IMPRESSION: Nonvisualized left ovary. Otherwise unremarkable ultrasound pelvis Dictated by: Faustino Darling M.D. on 11/24/2020 at 13:51 Approved by: Faustino Darling M.D. on 11/24/2020 at 14:01
== END ==
PROVIDERS: PCP Internal Medicine; Referring Provider Internal Medicine; Visit Provider Internal Medicine
DX: N28.1 Cyst of kidney, acquired (principal); M81.0 Age-related osteoporosis without current pathological fracture; R10.32 Left lower quadrant pain; Z78.0 Asymptomatic menopausal state
CPT/HCPCS: 76700; 76830; 76856; 77080; 77081

== ENCOUNTER → 2020-11-29 10:27 | Outpatient (CLI) | payer MEDICARE, SELFPAY ==
[2018-06-27 18:50] VITALS: BMI 23.0
--- NOTE | 2020-11-29 10:28 | DI.MG.S_ITS ---
BILATERAL DIGITAL SCREENING MAMMOGRAM 3D/2D WITH CAD: 11/29/2020 CLINICAL: Routine screening. Family history of breast cancer. Comparison is made to exams dated: 03/17/2019 mammogram, 03/04/2017 mammogram, 11/04/2015 mammogram, and 10/18/2014 mammogram - [facility]. There are scattered fibroglandular elements in both breasts. Current study was also evaluated with a Computer Aided Detection (CAD) system. No significant masses, calcifications, or other findings are seen in either breast. There has been no significant interval change. IMPRESSION: NEGATIVE There is no mammographic evidence of malignancy. A 1 year screening mammogram is recommended. This exam was interpreted at Station ID: [id number]. NOTE: For mammograms, a report in lay terms will be sent to the patient. Approximately 15% of breast malignancies will not be visualized mammographically. In the management of a palpable breast mass, a negative mammogram must not discourage biopsy of a clinically suspicious lesion. Electronically Signed By: Freddy fay/althea:12/01/2020 08:01:20 letter sent: Normal Exam ACR BI-RADS Category 1: Negative 3341F
== END ==
PROVIDERS: PCP Internal Medicine; Referring Provider Internal Medicine; Visit Provider Internal Medicine
DX: Z12.31 Encounter for screening mammogram for malignant neoplasm of breast (principal); Z80.3 Family history of malignant neoplasm of breast
CPT/HCPCS: 77063; 77067

== ENCOUNTER → 2021-08-28 10:17 | Outpatient (CLI) | payer MEDICARE, SELFPAY ==
[2018-06-27 18:50] VITALS: BMI 23.0
--- NOTE | 2021-08-28 | DI.RAD.S_ITS ---
PROCEDURE: XR KNEE RT 3V INDICATIONS: RIGHT KNEE PAIN TECHNIQUE: 2 views of the right knee were acquired. AP weight-bearing view of both knees. COMPARISON: [facility], , KNEE 3V RIGHT, 10/18/2008, 10:20. FINDINGS: Bones: No fractures or dislocations. No suspicious bony lesions. The joint spaces are maintained with weight-bearing. Soft tissues: No joint effusion. No suspicious soft tissue calcifications. IMPRESSION: No significant abnormality Dictated by: Jean Claude Min M.D. on 08/28/2021 at 12:35 Approved by: Jean Claude Min M.D. on 08/28/2021 at 12:36
== END ==
PROVIDERS: PCP Internal Medicine; Referring Provider Internal Medicine; Visit Provider Internal Medicine
DX: M25.561 Pain in right knee (principal)
CPT/HCPCS: 73562

== ENCOUNTER → 2022-05-01 11:29 | Outpatient (CLI) | payer MEDICARE, SELFPAY ==
[2018-06-27 18:50] VITALS: BMI 23.0
--- NOTE | 2022-05-01 11:31 | DI.MG.S_ITS ---
BILATERAL DIGITAL SCREENING MAMMOGRAM 3D/2D WITH CAD: 05/01/2022 CLINICAL: Routine screening. Family history of breast cancer. Comparison is made to exams dated: 11/29/2020 mammogram, 03/17/2019 mammogram, 03/04/2017 mammogram, and 11/04/2015 mammogram - [facility]. There are scattered areas of fibroglandular density in both breasts (category b / 25%-50% glandular tissue). Current study was also evaluated with a Computer Aided Detection (CAD) system. There are benign vascular calcifications in both breasts. No significant masses, calcifications, or other findings are seen in either breast. There has been no significant interval change. IMPRESSION: BENIGN There is no mammographic evidence of malignancy. A 1 year screening mammogram is recommended. Based on the Tyrer Cuzick model (a risk assessment model) the patient's lifetime risk is 2.7% and her 10 year risk is 0.0%. According to the ACR, ACS, and NCCN guidelines, an annual breast MRI exam along with mammogram is recommended if the patient's lifetime risk is 20% or greater. This exam was interpreted at Station ID: [id number]. NOTE: For mammograms, a report in lay terms will be sent to the patient. Approximately 15% of breast malignancies will not be visualized mammographically. In the management of a palpable breast mass, a negative mammogram must not discourage biopsy of a clinically suspicious lesion. Electronically Signed By: Freddy fay/althea:05/03/2022 08:14:32 letter sent: Normal Exam ACR BI-RADS Category 2: Benign Finding(s) 3342F
== END ==
PROVIDERS: PCP Internal Medicine; Referring Provider Internal Medicine; Visit Provider Internal Medicine
DX: Z12.31 Encounter for screening mammogram for malignant neoplasm of breast (principal); Z80.3 Family history of malignant neoplasm of breast
CPT/HCPCS: 77063; 77067

== ENCOUNTER → 2022-07-17 10:17 | Outpatient (CLI) | payer MEDICARE, SELFPAY ==
[2018-06-27 18:50] VITALS: BMI 23.0
[2022-07-17 11:16] LABS: Influenza A - CEPHEID Flu A NEGATIVE (NEGATIVE); Influenza B - CEPHEID Flu B NEGATIVE (NEGATIVE); Respiratory Syncytial Virus Negative (Negative)
[2022-07-17 11:22] LABS: COVID-19 CEPHEID 4-PLEX PCR Negative (Negative)
== END ==
PROVIDERS: PCP Internal Medicine; Visit Provider Nurse Practitioner Family
DX: J06.9 Acute upper respiratory infection, unspecified (principal)
CPT/HCPCS: 0241U

== ENCOUNTER → 2022-09-10 09:42 | Outpatient (CLI) | payer MEDICARE, SELFPAY ==
[2018-06-27 18:50] VITALS: BMI 23.0
--- NOTE | 2022-09-10 09:52 | DI.DEXA.S_ITS ---
Bone Density Report Name: GURWINDER OCAMPO Age: 77 Sex: Female Ethnicity: White Date of : 1945 Indication: postmenopausal osteoporosis; monitoring treatment; Referring Provider: COLEMAN REED Study: Bone densitometry was performed. Exam Date: September 10, 2022 Accession number: [id number] Bone Density: Region BMD T-score Z-score Classification AP Spine(L1-L4) 0.774 -2.5 0.1 Osteoporosis Femoral Neck (Right) 0.530 -2.9 -0.7 Osteoporosis Total Hip (Right) 0.588 -2.9 -1.0 Osteoporosis Total Forearm (Left) 0.414 -3.1 -0.3 Osteoporosis 1/3 Forearm (Left) 0.501 -3.2 -0.4 Osteoporosis UD Forearm (Left) 0.293 -2.6 -0.6 Osteoporosis World Health Organization criteria for BMD impression classify patients as: Normal (T-score at or above -1.0), Osteopenia (T-score between -1.0 and -2.5), or Osteoporosis (T-score at or below -2.5). 10-year Fracture Risk: FRAX not reported because: Some T-score for Spine Total or Hip Total or Femoral Neck at or below -2.5 Treated for osteoporosis Previous Exams: -- Region Exam Age BMD T-score BMD Change BMD Change Date g/cm2 vs Baseline vs Previous -- AP Spine (L1-L4) 09/10/2022 77 0.774 -2.5 -0.020 (-2.5%)# -0.020 (-2.5%)# 03/19/2008 63 0.794 -2.3 Total Hip(Right) 09/10/2022 77 0.588 -2.9 0.027 (4.8%)# 0.027 (4.8%)# 11/24/2020 75 0.562 -3.1 -- *Denotes significance at 95% confidence level, LSC for AP Spine = 0.022 g/cm2, LSC for Total Hip = 0.027 g/cm2 # Denotes dissimilar scan types or analysis methods Impression: The patient has osteoporosis, based on the Right Total Hip T-score. No significant bone loss was observed. Discussion: PATIENT UNDER TREATMENT WITH NO SIGNIFICANT BMD LOSS SINCE LAST EXAM. In an untreated patient, BMD typically declines with age. A lack of decline or gain is usually a sign that treatment is efficacious and fracture risk is reduced. It is important to ask patients whether they are taking their medications and to encourage continued and appropriate compliance with their osteoporosis therapies to reduce fracture risk. It is also important to review their risk factors and encourage appropriate calcium and vitamin D intakes, exercise, fall prevention and other lifestyle measures. Follow-Up: Consider a repeat BMD and Vertebral Fracture Assessment (VFA) exam in 2 years or sooner if medically necessary, to reassess this patient's status. Reported by: JAIME MAYFIELD MD on 09/10/2022 10:02:00 AM.
== END ==
PROVIDERS: PCP Internal Medicine; Referring Provider Internal Medicine; Visit Provider Internal Medicine
DX: M81.0 Age-related osteoporosis without current pathological fracture (principal); Z13.820 Encounter for screening for osteoporosis; Z78.0 Asymptomatic menopausal state; Z79.83 Long term (current) use of bisphosphonates
CPT/HCPCS: 77080

== ENCOUNTER → 2023-08-22 13:56 | Outpatient (CLI) | payer MEDICARE, SELFPAY ==
[2018-06-27 18:50] VITALS: BMI 23.0
--- NOTE | 2023-08-22 | DI.RAD.S_ITS ---
Bone Density Report Name: GURWINDER OCAMPO Age: 78 Sex: Female Ethnicity: White Date of : 1945 Indication: postmenopausal osteoporosis; monitoring treatment; Referring Provider: COLEMAN REED Study: Bone densitometry was performed. Exam Date: August 22, 2023 Accession number: [id number] Bone Density: Region BMD T-score Z-score Classification AP Spine(L1-L4) 0.799 -2.3 0.3 Osteopenia Femoral Neck (Right) 0.511 -3.0 -0.8 Osteoporosis Total Hip (Right) 0.556 -3.2 -1.2 Osteoporosis Total Forearm (Left) 0.399 -3.3 -0.5 Osteoporosis 1/3 Forearm (Left) 0.501 -3.2 -0.3 Osteoporosis UD Forearm (Left) 0.272 -2.9 -0.8 Osteoporosis World Health Organization criteria for BMD impression classify patients as: Normal (T-score at or above -1.0), Osteopenia (T-score between -1.0 and -2.5), or Osteoporosis (T-score at or below -2.5). 10-year Fracture Risk: FRAX not reported because: Some T-score for Spine Total or Hip Total or Femoral Neck at or below -2.5 Treated for osteoporosis Previous Exams: -- Region Exam Age BMD T-score BMD Change BMD Change Date g/cm2 vs Baseline vs Previous -- AP Spine (L1-L4) 08/22/2023 78 0.799 -2.3 0.004 (0.6%)# 0.024 (3.2%)* 09/10/2022 77 0.774 -2.5 -0.020 (-2.5%)# -0.020 (-2.5%)# 03/19/2008 63 0.794 -2.3 Total Hip(Right) 08/22/2023 78 0.556 -3.2 -0.093 (-14.3%)# -0.033 (-5.5%)# 09/10/2022 77 0.588 -2.9 -0.061 (-9.3%)# 0.027 (4.8%)# 11/24/2020 75 0.562 -3.1 -0.087 (-13.5%)* -0.039 (-6.6%)* 09/05/2018 73 0.601 -2.8 -0.048 (-7.4%)* 0.007 (1.1%) 03/04/2017 72 0.594 -2.9 -0.055 (-8.4%)* 0.005 (0.9%) 07/15/2015 70 0.589 -2.9 -0.060 (-9.3%)* -0.043 (-6.8%)* 10/03/2009 64 0.632 -2.5 -0.017 (-2.7%) -0.017 (-2.7%) 03/19/2008 63 0.649 -2.4 1/3 Forearm(Left) 08/22/2023 78 0.501 -3.2 -0.001 (-0.1%) -0.001 (-0.1%) 09/10/2022 77 0.501 -3.2 -- *Denotes significance at 95% confidence level, LSC for AP Spine = 0.022 g/cm2, LSC for Total Hip = 0.027 g/cm2, LSC for 1/3 Forearm = 0.023 g/cm2 # Denotes dissimilar scan types or analysis methods Impression: The patient has osteoporosis, based on the Right Total Hip T-score. No significant bone loss was observed. Discussion: PATIENT UNDER TREATMENT WITH NO SIGNIFICANT BMD LOSS SINCE LAST EXAM. In an untreated patient, BMD typically declines with age. A lack of decline or gain is usually a sign that treatment is efficacious and fracture risk is reduced. It is important to ask patients whether they are taking their medications and to encourage continued and appropriate compliance with their osteoporosis therapies to reduce fracture risk. It is also important to review their risk factors and encourage appropriate calcium and vitamin D intakes, exercise, fall prevention and other lifestyle measures. Follow-Up: Consider a repeat BMD and Vertebral Fracture Assessment (VFA) exam in 2 years or sooner if medically necessary, to reassess this patient's status. Reported by: MONY SUÁREZ M.D. on 08/22/2023 2:29:00 PM.
== END ==
LOC: RAD 13:57
PROVIDERS: PCP Internal Medicine; Referring Provider Internal Medicine; Visit Provider Internal Medicine
DX: M81.0 Age-related osteoporosis without current pathological fracture (principal)
CPT/HCPCS: 77080; 77081

== ENCOUNTER → 2023-12-01 07:49 | Outpatient (CLI) | payer MEDICARE, SELFPAY ==
[2018-06-27 18:50] VITALS: BMI 23.0
[2023-12-01 08:46] LABS: Alanine Aminotransferase 23 IU/L (<35); Albumin 4.1 g/dL (3.5-5.0); Albumin Globulin Ratio 1.5 (1.0-2.8); Alkaline Phosphatase 49 U/L (38-126); Aspartate Aminotransferase 35 IU/L (14-36); Bilirubin Total 0.6 mg/dL (0.2-1.3); Blood Urea Nitrogen 24 mg/dL (7-17); Carbon Dioxide 28 mmol/L (22-32); Chloride 109 mmol/L (98-107); Estimated Glomerular Filt Rate > 60 mL/min (>60); Globulin 2.8 g/dL (1.7-4.1); Glucose 81 mg/dL (80-110); HEMOLYSIS < 15 (0-50); Potassium 4.4 mmol/L (3.4-5.1); Sodium 142 mmol/L (137-145); Total Protein 6.9 g/dL (6.3-8.2)
== END ==
PROVIDERS: PCP Internal Medicine; Referring Provider Internal Medicine; Visit Provider Internal Medicine
DX: E78.5 Hyperlipidemia, unspecified (principal)
CPT/HCPCS: 36415; 80053

== ENCOUNTER → 2025-03-23 09:03 | Outpatient (CLI) | payer MEDICARE, SELFPAY ==
[2018-06-27 18:50] VITALS: BMI 23.0
--- NOTE | 2025-03-23 09:05 | DI.CT.S_ITS ---
PROCEDURE: CT ABDOMEN PELVIS W CON
== END ==
LOC: CT 09:04
PROVIDERS: PCP Registered Nurse; Referring Provider Registered Nurse; Visit Provider Registered Nurse
DX: K59.09 Other constipation (principal); K57.30 Diverticulosis of large intestine without perforation or abscess without bleeding; R68.81 Early satiety; I70.0 Atherosclerosis of aorta; M41.9 Scoliosis, unspecified; Z96.642 Presence of left artificial hip joint
CPT/HCPCS: 74177; Q9967